=== PATIENT | female | born 1995 | race Caucasian/White ===

== ENCOUNTER 2023-05-28 07:21 | Day surgery (SDC) | payer OTHER ==
[~2023-05-28] VITALS: Ht 172.7 cm; Wt 61.2 kg
[2023-05-28] MEDS ORDERED: ACETAMINOPHEN I.V. 1000 MG 100 ML IV ONE (07:37)
[2023-05-28 08:11] LABS: HCG,QUAL RESULT NEGATIVE (NEGATIVE)
[2023-05-28 08:22] VITALS: O2SAT 99
[2023-05-28] MEDS ORDERED: METOCLOPRAMIDE HCL 10 MG/2 ML VIAL IVP PRN (09:15)
[2023-05-28] MEDS ORDERED: LR 1,000 ML IV SCH (09:15)
[2023-05-28] MEDS ORDERED: MIDAZOLAM HCL 2 MG/2 ML VIAL (VERSED) IVP PRN (09:15)
[2023-05-28] MEDS ORDERED: LABETALOL 100 MG/ 20ML VIAL IVP PRN (09:15)
[2023-05-28] MEDS ORDERED: HYDROmorphone 1 MG/ML INJ. CARTRIDGE IVP PRN ×2 (09:15)
[2023-05-28] MEDS ORDERED: hydrALAZINE HCL 20 MG/ML VIAL IVP PRN (09:15)
[2023-05-28] MEDS ORDERED: MEPERIDINE HCL/PF 25 MG/ML DISP.SYRIN IVP PRN (09:15)
[2023-05-28] MEDS ORDERED: LIDOCAINE 2%, 20 ML MDV ONE (10:55)
[2023-05-28] MEDS ORDERED: PROPOFOL 200MG/ 20ML VIAL (DIPRIVAN) IV ONE (10:55)
[2023-05-28] MEDS ORDERED: EPINEPHrine HCL 1 MG/ML VIAL ONE (10:55)
[2023-05-28] MEDS ORDERED: ROCURONIUM BROMIDE 10 MG/ML (ZEMURON) ONE (10:55)
[2023-05-28] MEDS ORDERED: DEXAMETHASONE SOD PHOSPHATE 4 MG/ML VIAL ONE (10:55)
[2023-05-28] MEDS ORDERED: LIDOCAINE/EPI 1% 1:100000 20 ML VIAL ONE (10:55)
[2023-05-28] MEDS ORDERED: NS 1000 ML IV.SOLN IV ONE (10:55)
[2023-05-28] MEDS ORDERED: ONDANSETRON HCL 4 MG/2 ML VIAL ONE (10:55)
[2023-05-28] MEDS ORDERED: BACITRACIN 1 GM OINT TP ONE (10:55)
[2023-05-28] MEDS ORDERED: LEVOFLOXACIN 500 mg/D5W 100 mL IVPB IV ONE (10:55)
[2023-05-28] MEDS ORDERED: OXYMETAZOLINE HCL 0.05% NASAL SPRAY NS ONE (10:55)
[2023-05-28] MEDS ORDERED: NS IRRIG SOLN 1000 ML IR ONE (10:55)
[2023-05-28] MEDS ORDERED: DESFLURANE 15 MIN GAS INH ONE (10:55)
[2023-05-28] MEDS ORDERED: SUGAMMADEX SODIUM 200 MG/2 ML VIAL IV ONE (10:55)
[2023-05-28] MEDS ORDERED: LR 1,000 ML IV.SOLN IV ONE (10:55)
[2023-05-28] MEDS ORDERED: MIDAZOLAM HCL 5 MG/ML VIAL (VERSED) IV ONE (10:55)
[2023-05-28] MEDS ORDERED: fentaNYL CITRATE/PF 100 MCG/2 ML AMP ONE (10:55)
[2023-05-28] MEDS ORDERED: METOCLOPRAMIDE HCL 10 MG/2 ML VIAL ONE (11:33)
[2023-05-28 12:15] VITALS: PULSE 83; RESP 18; TEMP 97.5
[2023-05-28 13:47] VITALS: BP_SYST 117
== END 2023-05-28 14:43 | disposition home or self-care (01) ==
LOC: SDS 07:21 → SMU 07:23 → SDS 14:43
PROVIDERS: ATTEND Otolaryngology
DX: D38.5 Neoplasm of uncertain behavior of other respiratory organs (principal); J32.9 Chronic sinusitis, unspecified; J45.20 Mild intermittent asthma, uncomplicated
CPT/HCPCS: 31298; 84703; 87070; 87075; 87101; 88304; 88305; 88311; 30520; 31255; 31256; J3490; J1100; J0171; J1956; J2001; J2765; J2250; J2405; J2704; J3010; J7120; J7030; C1726; J0131; J3465